=== PATIENT | male | born 1975 | race Caucasian/White ===

== ENCOUNTER 2016-07-29 23:59 | Emergency (ER) | payer BC ==
--- NOTE | ~2016-07-29 | CR243 ---
[facility] A Service of [facility] [place] RADIOLOGY TEXT RESULTS PATIENT: PHIL VARNER JR LOCATION: [place] : 75 UNIT #: [id number] AGE: [address]: TOBI HERNANDEZ APRN SEX: M ORDER DR: [id number] [facility] [address] [place], [place] [address] [id number] E MR#: [id number] Acc #: [id number] NAME: PHIL VARNER JR : 1975 SEX: M STUDY DATE/TIME: 07/30/2016 3:22 UNIT: [facility] ROOM: STUDY DESCRIPTION: CR Thoracic Spine 3 Views Attending Physician: Tobi Hernandez Aprn Ordering Physician: Patrick Nicholas M.D. Primary Care Physician: Dewayne Thorpe M.D. MEDICAL IMAGING REPORT This report is preliminary unless electronic signature is present EXAM Thoracic spine 07/30/2016 HISTORY 41-year-old male in the ED complaining of acute worsening of chronic back pain. Scoliosis. TECHNIQUE 3 view thoracic spine series. FINDINGS Severe scoliosis with maximum mid-thoracic convexity to the right measuring 54 degrees and maximum mid lumbar convexity to the left measuring 48 degrees. No visible acute or chronic fracture or additional osseous lesion. No significant change since 09/08/2015. IMPRESSION 1. No acute osseous abnormality. 2. Severe scoliosis as detailed above. No change since 09/08/2015. Dictated by... Umberto Malik M.D. THIS IS AN ELECTRONICALLY VERIFIED REPORT Umberto Malik M.D. at 07/30/2016 9:53 PM ALEKSANDERW/grace TD: 07/30/2016 06:08 JOB #: [id number] [facility] A Service [facility] RADIOLOGY TEXT RESULTS PATIENT: PHIL VARNER JR LOCATION: [facility] : 75 UNIT #: [id number] AGE: [address]: TOBI HERNANDEZ APRN SEX: M ORDER DR: MEDICAL IMAGING REPORT Page 1 of 1 COPY
[~2016-07-29 23:59] MED LIST: BACLOFEN10 MG PO; FLEXERIL10 MG PO; LIDODERM30 EA TOP; MEDROL DOSEPAK4 MG PO; MEDROL4 MG/DOSE- PO; MOTRIN600 M2 DOB; MOTRIN600 MG PO; NO MEDICATIONS; ONDANSETRON ODT4 MG DOB; ROBAXIN500 MG PO; TESSALON PERLE100 M1 DOB; TRAMADOL HCL50 M1; TYLENOL #3 PO; VALIUM PO; VOLTAREN75 MG PO
== END 2016-07-30 06:25 | disposition home or self-care (01) ==
LOC: CED 23:59
DX: M54.6 Pain in thoracic spine (principal); M62.830 Muscle spasm of back; M41.80 Other forms of scoliosis, site unspecified; F17.210 Nicotine dependence, cigarettes, uncomplicated
CPT/HCPCS: 72072; 96372; 99283; J3360

== ENCOUNTER 2016-12-14 14:50 | Emergency (ER) | payer BC ==
--- NOTE | ~2016-12-14 | CT98 ---
[facility] A Service [facility] RADIOLOGY TEXT RESULTS PATIENT: PHIL VARNER JR LOCATION: [facility] : 75 UNIT #: [id number] AGE: [address]: Jeanette Leach APRN SEX: M ORDER DR: [id number] [address] [address] [id number] E MR#: [id number] Acc #: [id number] NAME: PHIL VARNER JR : 1975 SEX: M STUDY DATE/TIME: 12/14/2016 16:05 UNIT: SED ROOM: STUDY DESCRIPTION: CT Lumbar Spine Wo Cont Attending Physician: Jeanette Leach A.P.R.N. Ordering Physician: Jeanette Ash A.P.R.N. Primary Care Physician: Dewayne Thorpe M.D. MEDICAL IMAGING REPORT This report is preliminary unless electronic signature is present. EXAM CT of the lumbar spine without contrast 12/14/2016 HISTORY 41-year-old male severe low back pain onset today. No known injury. Degenerative disc disease. Scoliosis. COMPARISON MRI lumbar spine 08/07/2015. TECHNIQUE 2 mm axial images through the lumbar spine without contrast. Sagittal and coronal reformatted images were obtained. This CT exam was performed with one or more of the following radiation dose reduction techniques: automatic exposure control, adjustment of mA and/or kV according to patient size, and iterative reconstruction. FINDINGS Lumbar levoscoliosis centered at L2-3, approximately 47.6 degrees. Diminished disc height eccentrically toward the right at T12-L1, L1-2, L2-3. No acute lumbar spine fracture or subluxation. Imaged paraspinal soft tissues are unremarkable. At T12-L1, mild left paravertebral disc bulge without significant canal or foraminal stenosis. At L1-2, mild disc bulge, greatest in the bilateral paravertebral regions. No significant canal stenosis. Mild right inferior neural foraminal narrowing. At L2-3, there is mild left paravertebral disc bulge. No significant STS. [facility] A Service of [facility] RADIOLOGY TEXT RESULTS PATIENT: PHIL VARNER JR LOCATION: [facility] #: [id number] : 75 UNIT #: [id number] AGE: [address]: Jeanette Leach APRN SEX: M ORDER DR: canal stenosis. Mild left neural foraminal narrowing. At L3-4, mild left paravertebral or subarticular disc bulge. No significant canal stenosis. Right neural foramen is widely patent. Mild left inferior neural foraminal narrowing. At L4-5, there is broad-based disc bulge eccentric toward the left paravertebral to subarticular region. There is mild canal stenosis. The paravertebral disc may indent the left L4 nerve root outside the foramen. Right neural foramen appears patent. At L5-S1, no significant canal or foraminal stenosis is seen. IMPRESSION 1. No acute lumbar spine findings. 2. 47.6 degrees levoscoliosis of the lumbar spine. 3. No high-grade canal stenosis is seen at any lumbar level. There are mild multilevel lumbar degenerative disc changes. The left L4 nerve root may be indented by left paravertebral disc bulge, after it exits the foramen. Correlate for radiculopathy symptoms in this distribution. Dictated by... Katalina Soto M.D. THIS IS AN ELECTRONICALLY VERIFIED REPORT Katalina Soot M.D. at 12/15/2016 7:46 PM CYNTHIA/sheng TD: 12/15/2016 16:05 JOB #: [id number] MEDICAL IMAGING REPORT Page 1 of 1
[2016-12-14] MEDS ORDERED: BACLOFEN10 MG (14:56)
[2016-12-14] MEDS ORDERED: NEURONTIN (14:56)
[2016-12-14] MEDS ORDERED: ULTRAM (14:56)
== END 2016-12-14 17:22 | disposition home or self-care (01) ==
LOC: SED 14:50
DX: M54.5 Low back pain (principal); F17.210 Nicotine dependence, cigarettes, uncomplicated
CPT/HCPCS: 72131; 99283